=== PATIENT | female | born 1945 | race Caucasian/White ===

== ENCOUNTER → 2024-02-10 14:39 | Outpatient (REF) | payer MEDICARE, SELFPAY | LOC: PAVMRI 14:39 | PROVIDERS: ATTENDING PHYSICIAN Physician Assistant Medical; FAMILY PHYSICIAN Family Medicine | DX: M48.062 Spinal stenosis, lumbar region with neurogenic claudication (principal) | CPT/HCPCS: 72148 ==

== ENCOUNTER 2024-08-01 12:22 | Emergency (ER) | payer MEDICARE, SELFPAY ==
[2024-08-01 12:24] VITALS: BP 141/78
[2024-08-01 12:46] LABS: % Basophils 0.2 % (0-2); % Immature Granulocytes 0.3 % (0-0.5); % Lymphocytes 5.8 % (20.5-51.1); % Monocytes 3.4 % (1.7-9.3); % Neutrophils 90.3 % (42.2-75.2); Absolute Lymphocytes 0.5 10^3/uL (1.2-3.4); Absolute Monocytes 0.3 10^3/uL (0.1-0.6); Absolute Neutrophils 8.5 10^3/uL (1.4-6.5); Hematocrit 34.1 % (37.0-47.0); Hemoglobin 11.5 g/dL (12.0-16.0); Mean Corp Hgb Conc. 33.7 g/dL (33.0-37.0); Mean Corpuscular Hgb 31.3 pg (27.0-31.0); Mean Corpuscular Volume 92.7 fL (81.0-99.0); Mean Platelet Volume 9.7 fL (7.4-10.4); Nucleated Red Blood Cells % 0 %; Platelet Count 288 10^3/uL (130-400); Red Blood Cell Count 3.68 10^6/uL (4.20-5.40); Red Cell Dist. Width 13.6 % (11.5-14.5); White Blood Cell Count 9.4 10^3/uL (4.8-10.8)
[2024-08-01 12:54] LABS: ALT (SGPT) 23 U/L (0-35); AST (SGOT) 28 U/L (14-36); Albumin 4.4 g/dl (3.5-5.0); Alkaline Phosphatase 59 U/L (38-126); Blood Urea Nitrogen 24 mg/dl (7-17); Calcium 9.5 mg/dl (8.4-10.2); Carbon Dioxide 26 mmol/L (22-30); Chloride 101 mmol/L (98-107); Glucose 138 mg/dl (70-99); Potassium 4.4 mmol/L (3.5-5.1); Sodium 140 mmol/L (135-145); Total Bilirubin 0.3 mg/dl (0.2-1.3); Total Protein 6.6 g/dl (6.3-8.2); eGFR > 60.00
[2024-08-01 14:40] VITALS: BP 143/67; BMI 28.3
--- NOTE | 2024-08-01 14:57 | ED.GENMED ---
History of Present Illness
<Ernst Chi MD, Resident - Last Filed: 08/02/24 07:18>
General
Chief Complaint: Rectal Bleeding
Source: patient
Time Seen by Provider: 08/01/24 13:55
History of Present Illness
History of Present Illness:
Patient is a 78-year-old female with past medical history of Crohn's disease, GERD, Barretts, frequent UTIs who presents with crampy lower abdominal pain, starting around 1:30 AM. She states that she felt a large stool pass and after that she had 5
episodes of bright red rectal bleeding. She dined out last night and had salmon and risoto for dinner. pt denies being constipated and has regular bowel movements. Does not have a history of hemorrhoids to the best of her knowledge. Mentions
about 2 weeks ago she had an episode of UTI for which she was prescribed Cipro. She is usually treated with cephalexin for her UTI and this was the first time she was taking Cipro. Mentions that after completing course of antibiotics last week,
she had dark black stools for 3 days. Outpatient labs done on 07/27 showed a hgb of 10.8.
Patient denies any fever. denies recent weight loss. does not complain of significant lightheadedness or dizziness. She has been feeling nauseous since [employer] and has vomited couple of times.
She was admitted to with [facility] in April and is known to Dr. Treviño.
If applicable-neuro sx onset
Onset of symptoms known: Yes
Date of onset of symptoms: 08/01/24
Time of onset of symptoms: 01:30
Past History
<Ernst Chi MD, Resident - Last Filed: 08/02/24 07:18>
Past History
ED Past Medical History: Fibromyalgia, GERD, HTN, Hypercholesterolemia, Hypothyroidism and Other ( Gonzalez's esophagus, small bowel Crohn's disease, iron deficiency anemia, GI bleeding, Pancreatitis,)
ED Past Surgical History: Appendectomy, Orthopedic (Knee arthroscopy, knee replacement), Tonsilectomy and Other (Partial Thyroidectomy)
Social History
Tobacco: Former smoker
Alcohol: Occasional
Drug: None
Personal:
Living: with family
Employment: Retired
Family History
Family History: Other (Noncontributory)
Review of Systems
<Ernst Chi MD, Resident - Last Filed: 08/02/24 07:18>
Review of Systems
Allergies reviewed?: Yes
All Other Systems: ROS reviewed and negative except as documented in HPI and ROS
ABD/GI: Reports abdominal pain, nausea and vomiting
Phy Exam
<Ernst Chi MD, Resident - Last Filed: 08/02/24 07:18>
General Physical Exam
General Presentation: well appearing
Cardiovascular Exam
Cardiovascular Exam: regular rate/rhythm
Pulmonary Exam
Pulmonary Exam: lungs clear and no respiratory distress
Gastrointestinal Exam
Gastrointestinal Exam: normal bowel sounds, non tender (Minimal suprapubic tenderness), soft and non distended
Rectal Exam: other (Positive Hemoccult test, Rectal skin tag)
Neurological Exam
Neurological Exam: alert and oriented x3
Course
<Ernst Chi MD, Resident - Last Filed: 08/02/24 07:18>
Orders/Labs/Results
Orders:
Orders
08/01/24 12:30
Type+Screen Urgent
Complete Blood Count/With Diff Urgent
Comprehensive Metabolic Panel Urgent
08/01/24 14:55
0.9% Sodium Chloride 500 ml [Nss] 500 ml IV Per Protocol mls/hr
Ondansetron Injectable [Zofran] 4 mg IV NOW STA
08/01/24 15:19
CT Abd/pelvis W Iv Cont Urgent
Comment:
Reason For Exam: nausea, vomiting, blood in stool
08/01/24 17:42
ECG [Electrocardiogram (*1)] Urgent
Reason for Study: Palpitations
EKG- Treatment ONCE
08/01/24 17:43
Atenolol [Tenormin] 50 mg PO NOW STA
08/01/24 19:25
Amoxicillin 875 mg/Clav 125 mg [Augmentin 875 mg/125 mg] 1 tablet PO NOW STA
08/01/24 19:49
Urinalysis Reflex To Culture Urgent
Date Specimen was Collected: 08/01/24
Time Specimen was Collected: 15:43
Abnormal Lab Results
08/01/24
12:30
RBC 3.68 L 10^6/uL
(4.20-5.40)
Hgb 11.5 L g/dL
(12.0-16.0)
Hct 34.1 L %
(37.0-47.0)
MCH 31.3 H pg
(27.0-31.0)
Absolute Neuts (auto) 8.5 H 10^3/uL
(1.4-6.5)
Absolute Lymphs (auto) 0.5 L 10^3/uL
(1.2-3.4)
Neutrophils % 90.3 H %
(42.2-75.2)
Lymphocytes % 5.8 L %
(20.5-51.1)
BUN 24 H mg/dl
(7-17)
Glucose 138 H mg/dl
(70-99)
08/01/24 12:30
08/01/24 12:30
Vital Signs
Initial and Last Documented VS:
Initial Vital Signs
Temp Pulse Resp BP Pulse Ox
98.2 F 98 16 141/78 98
08/01/24 12:24 08/01/24 12:24 08/01/24 12:24 08/01/24 12:24 08/01/24 12:24
Last Documented Vital Signs
Temp Pulse Resp BP Pulse Ox
98.4 F 102 18 135/78 99
08/01/24 19:53 08/01/24 19:53 08/01/24 19:53 08/01/24 19:53 08/01/24 19:53
<Anahi DO Catie - Last Filed: 08/01/24 19:33>
Orders/Labs/Results
Orders:
Orders
08/01/24 12:30
Type+Screen Urgent
Complete Blood Count/With Diff Urgent
Comprehensive Metabolic Panel Urgent
08/01/24 14:55
0.9% Sodium Chloride 500 ml [Nss] 500 ml IV Per Protocol mls/hr
Ondansetron Injectable [Zofran] 4 mg IV NOW STA
08/01/24 15:19
CT Abd/pelvis W Iv Cont Urgent
Comment:
Reason For Exam: nausea, vomiting, blood in stool
08/01/24 17:42
ECG [Electrocardiogram (*1)] Urgent
Reason for Study: Palpitations
EKG- Treatment ONCE
08/01/24 17:43
Atenolol [Tenormin] 50 mg PO NOW STA
08/01/24 19:25
Amoxicillin 875 mg/Clav 125 mg [Augmentin 875 mg/125 mg] 1 tablet PO NOW STA
08/01/24 19:49
Urinalysis Reflex To Culture Urgent
Date Specimen was Collected: 08/01/24
Time Specimen was Collected: 15:43
Abnormal Lab Results
08/01/24
12:30
RBC 3.68 L 10^6/uL
(4.20-5.40)
Hgb 11.5 L g/dL
(12.0-16.0)
Hct 34.1 L %
(37.0-47.0)
MCH 31.3 H pg
(27.0-31.0)
Absolute Neuts (auto) 8.5 H 10^3/uL
(1.4-6.5)
Absolute Lymphs (auto) 0.5 L 10^3/uL
(1.2-3.4)
Neutrophils % 90.3 H %
(42.2-75.2)
Lymphocytes % 5.8 L %
(20.5-51.1)
BUN 24 H mg/dl
(7-17)
Glucose 138 H mg/dl
(70-99)
08/01/24 12:30
08/01/24 12:30
Vital Signs
Initial and Last Documented VS:
Initial Vital Signs
Temp Pulse Resp BP Pulse Ox
98.2 F 98 16 141/78 98
08/01/24 12:24 08/01/24 12:24 08/01/24 12:24 08/01/24 12:24 08/01/24 12:24
Last Documented Vital Signs
Temp Pulse Resp BP Pulse Ox
98.4 F 102 18 135/78 99
08/01/24 19:53 08/01/24 19:53 08/01/24 19:53 08/01/24 19:53 08/01/24 19:53
<Ernst Chi MD, Resident - Last Filed: 08/02/24 07:18>
*Critical Care Note
Total Time (30-74mins, 75-104mins- exclusive of procedures): 35
ED Attending Note
<Ernst Chi MD, Resident - Last Filed: 08/02/24 07:18>
-
Portions of this chart may have been created with voice recognition software.� Occasional wrong word or��sound alike� substitutions may have occurred due to the inherent limitations of voice recognition software.
<Anahi Haddad DO - Last Filed: 08/01/24 19:33>
ED Attending Note
Patient seen and examined by attending physician: Yes
I performed the substantive portion of visit, reviewed & personally made and approve the management plan that is documented in note by myself or CATHERINE.: Yes
I performed a history and physical exam of patient and discussed management with resident, I reviewed resident's note and agree with documented findings and plan of care.: Yes
ED Attending Note:
78-year-old female with history of Crohn's disease and Gonzalez's esophagus presenting to the emergency department for crampy abdominal pain and blood per rectum. Patient reports symptoms started around 130 this morning. She went out to dinner last
night and had salmon and risotto. At symptom onset, had a large bowel movement, followed by blood. Stool has been bright red. Also reports some nausea and an episode of vomiting. About 2 weeks ago, patient was treated for UTI, was placed on
ciprofloxacin and about 3 days after finishing the course of antibiotics, had very dark stools and her hemoglobin dropped to 10.3 (10/2). Denies chest pain or difficulty breathing. Reports that her urinary symptoms have improved. Denies fever.
Vital signs are normal. On exam, patient is in no acute distress. Patient afebrile, nontoxic. On abdominal exam, mild tenderness to the lower abdomen. Patient had laboratory analysis obtained prior to my assessment. Patient's hemoglobin has
improved from 10/2 where she noted it was 10.3. It is now in the 11 range. At this time, lower suspicion for significant GI hemorrhage. Suspect possible gastroenteritis, possibly from bacteria causing bloody diarrhea. Rectal exam performed by
resident physician, no significant hemorrhoid or hematochezia. Patient had a bowel movement in the toilet, which she showed me, small amount of bright red blood. Given patient's GI history, will obtain CT abdominal imaging to ensure no process.
Will treat with IV fluids and Zofran.
19:20 -CT is consistent with colitis. Given that patient is having a bloody diarrhea with moderate colitis, will start on antibiotics, Augmentin. Otherwise patient remains hemodynamically stable. Feel that she is stable for discharge with close
interval follow-up with her doctor for repeat CBC testing within a week time. Patient unable to provide stool for stool samples. Strict return precautions were communicated to patient and at bedside who verbalized understanding
Discharge Plan
Departure
Patient Disposition: Home (Routine Discharge)
Date of Disposition: 08/01/24
Time of Disposition: 19:33
Patient with high blood pressure during this ER visit?: No
Condition: Good
Discharge Problem:
Colitis, Bloody diarrhea
Instructions: Bloody Stools, Adult (DC), Colitis (DC)
Prescriptions:
New
amoxicillin-pot clavulanate 875-125 mg tablet
1 tab PO Q12H 10 Days Qty: 20 0RF
ondansetron 4 mg tablet,disintegrating
4 mg PO TIDPRN PRN (Reason: nausea/vomiting) Qty: 10 0RF
No Action
omeprazole 40 MG capsule,delayed release(DR/EC)
40 mg PO DAILY
calcium carbonate [Oyster Shell Calcium 500] 500 MG tablet
500 mg PO DAILY
levothyroxine 125 MCG tablet
125 mcg PO DAILY
atenolol 50 MG tablet
50 mg PO QPM
cholecalciferol (vitamin D3) 1,000 UNITS tablet
1,000 units PO DAILY
losartan 50 mg Tablet
50 mg PO DAILY
ascorbic acid (vitamin C) [Vitamin C] 1,000 mg Tablet
1,000 mg PO DAILY
acetaminophen [Tylenol Extra Strength] 500 mg Tablet
1,000 mg PO Q6HPRN PRN (Reason: mild pain)
amitriptyline 25 mg Tablet
25 mg PO HS
lorazepam 0.5 mg Tablet
0.5 mg PO HS
Patient Comments:
08/01/24: last filled 07/11/24 for 30 tablets over 30 days
cranberry 500 mg Capsule
500 mg PO DAILY
Centrum Silver Women 8 mg iron-400 mcg-50 mcg Tablet
1 tab PO DAILY
Skyrizi 360 mg/2.4 mL (150 mg/mL) Wearable Injector
0 mg SC Q8W
Patient Comments:
08/01/24: Patient is unsure of her current dosage
Referrals:
Nader Salcido DO [Family Provider] -
Activity Restrictions/Additional Instructions:
You were seen in the emergency department for abdominal pain and diarrhea
You were found to have colitis. You were started on Augmentin.
Please follow-up closely with your primary care physician.
Return to the emergency department for any worsening of your symptoms including increased bleeding per rectum, increased pain to the abdomen, or any development of chest pain, difficulty breathing, abdominal pain with persistent vomiting and
inability to tolerate food or liquid by mouth (concern for dehydration), weakness or lightheadedness, headache or confusion, fever greater than 100.4, or any additional symptoms that are concerning to you.
Thank you for choosing [facility] [place].
Interventions
Interventions:
*Risk Screen - Suicide Last Done: 08/01/24 12:24
*Neglect/Abuse Screening Last Done: 08/01/24 12:24
*Nursing Disposition Last Done: 08/01/24 19:53
OT-Fxfaut-Yhiuzajqog Assessment Last Done: 08/01/24 14:40
ED- Cardiac Assessment Last Done: 08/01/24 14:40
ED- Pulmonary Assessment Last Done: 08/01/24 14:40
Discharge Date and Time
Discharge Date/Time: 08/01/24 19:55
Print Language: CHINESE
[2024-08-01] MEDS: ZOFRAN 4 MG IV (15:36)
[2024-08-01] MEDS: NSS 500 IV (15:38)
[2024-08-01] MEDS: TENORMIN 50 MG PO (19:05)
[2024-08-01] MEDS: AUGMENTIN 875 MG/125 MG 1 TABLET PO (19:33)
[2024-08-01 19:53] VITALS: BP 135/78
[2024-08-01 19:56] LABS: Urine Albumin Negative (Neg - Trace); Urine Bilirubin Negative (Negative); Urine Character Clear (Clear); Urine Color Yellow; Urine Glucose Negative (Negative); Urine Ketone Negative (Negative); Urine Leukocyte Negative (Negative); Urine Nitrite Negative (Negative); Urine Occult Blood Negative (Negative); Urine Urobilinogen Negative (Neg - 1+)
== END 2024-08-01 19:55 | disposition home or self-care (01) ==
LOC: EMR 12:22
PROVIDERS: Emergency Medicine; EMERGENCY PHYSICIAN Student in an Organized Health Care Education/Training Program; FAMILY PHYSICIAN Family Medicine
DX: K52.9 Noninfective gastroenteritis and colitis, unspecified (principal); K92.1 Melena; K50.011 Crohn's disease of small intestine with rectal bleeding; K22.70 Barrett's esophagus without dysplasia; M79.7 Fibromyalgia; K21.9 Gastro-esophageal reflux disease without esophagitis; I10 Essential (primary) hypertension; E78.00 Pure hypercholesterolemia, unspecified; E03.9 Hypothyroidism, unspecified; D50.9 Iron deficiency anemia, unspecified; Z87.19 Personal history of other diseases of the digestive system; Z87.440 Personal history of urinary (tract) infections; Z87.891 Personal history of nicotine dependence; Z90.49 Acquired absence of other specified parts of digestive tract; Z96.659 Presence of unspecified artificial knee joint
CPT/HCPCS: 99284; 74177; 80053; 81003; 85025; 86850; 86900; 86901; 93005; Q9967

== ENCOUNTER 2024-08-18 11:32 | Emergency (ER) | payer MEDICARE, SELFPAY ==
[2024-08-18 11:38] VITALS: BP 117/66
[2024-08-18 11:58] LABS: % Basophils 0.2 % (0-2); % Eosinophils 0.3 % (0-6); % Immature Granulocytes 0.3 % (0-0.5); % Lymphocytes 11.2 % (20.5-51.1); % Monocytes 4.9 % (1.7-9.3); % Neutrophils 83.1 % (42.2-75.2); Absolute Lymphocytes 1.1 10^3/uL (1.2-3.4); Absolute Monocytes 0.5 10^3/uL (0.1-0.6); Absolute Neutrophils 7.9 10^3/uL (1.4-6.5); Hematocrit 32.1 % (37.0-47.0); Hemoglobin 10.9 g/dL (12.0-16.0); Mean Corpuscular Hgb 32.2 pg (27.0-31.0); Mean Corpuscular Volume 94.7 fL (81.0-99.0); Mean Platelet Volume 9.8 fL (7.4-10.4); Nucleated Red Blood Cells % 0 %; Platelet Count 278 10^3/uL (130-400); Red Blood Cell Count 3.39 10^6/uL (4.20-5.40); Red Cell Dist. Width 13.5 % (11.5-14.5); White Blood Cell Count 9.5 10^3/uL (4.8-10.8)
[2024-08-18 12:16] LABS: ALT (SGPT) 20 U/L (0-35); AST (SGOT) 24 U/L (14-36); Albumin 4.2 g/dl (3.5-5.0); Alkaline Phosphatase 60 U/L (38-126); Blood Urea Nitrogen 14 mg/dl (7-17); Calcium 9.5 mg/dl (8.4-10.2); Carbon Dioxide 25 mmol/L (22-30); Chloride 103 mmol/L (98-107); Glucose 125 mg/dl (70-99); Lipase 34 U/L (23-300); Potassium 3.9 mmol/L (3.5-5.1); Sodium 140 mmol/L (135-145); Total Bilirubin 0.6 mg/dl (0.2-1.3); Total Protein 6.4 g/dl (6.3-8.2); eGFR > 60.00
[2024-08-18 12:54] VITALS: BP 125/65
[2024-08-18 13:00] VITALS: BP 132/62
--- NOTE | 2024-08-18 13:12 | ED.GENMED ---
History of Present Illness
General
Chief Complaint: Abdominal Symptoms
Source: patient
Exam Limitations: none
Time Seen by Provider: 08/18/24 13:05
History of Present Illness
History of Present Illness:
78-year-old female presents complaining of persistent lower abdominal pain with diarrhea. She was here 08/01 for the same and diagnosed with colitis by CT. She was having bloody diarrhea at that time was placed on Augmentin of which she finished 1
week ago. She presents with persistent symptoms. No fever. Upon my entry into the room she is requesting a kit to give a stool culture as she think she can provide a sample. No other complaints at this time
Past History
Past History
ED Past Medical History: Fibromyalgia, GERD, HTN, Hypercholesterolemia, Hypothyroidism and Other ( Gonzalez's esophagus, small bowel Crohn's disease, iron deficiency anemia, GI bleeding, Pancreatitis,)
ED Past Surgical History: Appendectomy, Orthopedic (Knee arthroscopy, knee replacement), Tonsilectomy and Other (Partial Thyroidectomy)
Social History
Tobacco: Former smoker
Alcohol: Occasional
Drug: None
Personal:
Living: with family
Employment: Retired
Family History
Family History: Other (Noncontributory)
Phy Exam
Physical Exam
Physical Exam:
General: Well appearing female nad
HEENT: nC/AT
Heart: RRR, no murmurs
lungs: CTA bilaterally
ABd: soft, mildly diffusely tender
Ext: no cyanosis
Course
Orders/Labs/Results
Orders:
Orders
08/18/24 11:48
C-Reactive Protein Routine
Comment: ADD ON
Complete Blood Count/With Diff Urgent
Comprehensive Metabolic Panel Urgent
Erythrocyte Sed Rate Urgent
Comment: ADD ON
Lipase Urgent
08/18/24 13:36
STOOL [C difficile Antigen & Toxins] Urgent
FRANKLIN Source: Feces/Stool
Specimen Description:
Date Specimen was Collected: 08/18/24
Time Specimen was Collected: 13:15
Stool Culture Urgent
FRANKLIN Source: Feces/Stool
Specimen Description:
Date Specimen was Collected: 08/18/24
Time Specimen was Collected: 13:15
08/18/24 14:25
0.9% Sodium Chloride 1000 ml [Nss] 1,000 ml IV BOLUS
08/18/24 14:37
Add On- LAB Routine
Tests Added?: CRP, ESR
Abnormal Lab Results
08/18/24
11:48
RBC 3.39 L 10^6/uL
(4.20-5.40)
Hgb 10.9 L g/dL
(12.0-16.0)
Hct 32.1 L %
(37.0-47.0)
MCH 32.2 H pg
(27.0-31.0)
Absolute Neuts (auto) 7.9 H 10^3/uL
(1.4-6.5)
Absolute Lymphs (auto) 1.1 L 10^3/uL
(1.2-3.4)
Neutrophils % 83.1 H %
(42.2-75.2)
Lymphocytes % 11.2 L %
(20.5-51.1)
ESR 26 H mm/hour
(0-20)
Glucose 125 H mg/dl
(70-99)
08/18/24 11:48
08/18/24 11:48
Vital Signs
Initial and Last Documented VS:
Initial Vital Signs
Temp Pulse Resp BP Pulse Ox
98.8 F 101 18 117/66 99
08/18/24 11:38 08/18/24 11:38 08/18/24 11:38 08/18/24 11:38 08/18/24 11:38
Last Documented Vital Signs
Temp Pulse Resp BP Pulse Ox
98.8 F 97 18 132/62 96
08/18/24 11:38 08/18/24 14:00 08/18/24 14:00 08/18/24 13:00 08/18/24 14:00
MDM/Problems Addressed
Differential Diagnosis Includes:
Patient presents with persistent abdominal pain and diarrhea.
Was here for bloody diarrhea on August 01 and finished a course of Augmentin 1 week ago. She notes for the past 3 nights she has had diarrhea with lower abdominal. She does have a history of Crohn's disease and is followed by GI
Labs today show normal white count and stable hemoglobin renal functions are normal. She was hydrated. Stool cultures were ordered
*Critical Care Note
Total Time (30-74mins, 75-104mins- exclusive of procedures): Not Applicable
Update Note
Update Note:
C. difficile study negative today stool cultures pending patient hydrated. She was seen by GI in the emergency room. Given negative CT differential, will treat with prednisone for potential Crohn's flare. Prescription was provided and she will
follow-up with the GI team but stable for dicsharge.
ED Attending Note
-
Portions of this chart may have been created with voice recognition software.� Occasional wrong word or��sound alike� substitutions may have occurred due to the inherent limitations of voice recognition software.
Discharge Plan
Departure
Patient Disposition: Home (Routine Discharge)
Date of Disposition: 08/18/24
Time of Disposition: 15:41
Patient with high blood pressure during this ER visit?: No
Discharge Problem:
Diarrhea
Instructions: Diarrhea in teens and adults
Prescriptions:
New
prednisone 10 mg tablet
10 mg PO DIRECTED Qty: 50 0RF
Rx Instructions:
Take 40 mg for 5 days then 30 mg for 5 days then 20 mg for 5 days then 10 mg for 5 days.
No Action
omeprazole 40 MG capsule,delayed release(DR/EC)
40 mg PO DAILY
calcium carbonate [Oyster Shell Calcium 500] 500 MG tablet
500 mg PO DAILY
levothyroxine 125 MCG tablet
125 mcg PO DAILY
atenolol 50 MG tablet
50 mg PO QPM
cholecalciferol (vitamin D3) 1,000 UNITS tablet
1,000 units PO DAILY
losartan 50 mg Tablet
50 mg PO DAILY
ascorbic acid (vitamin C) [Vitamin C] 1,000 mg Tablet
1,000 mg PO DAILY
acetaminophen [Tylenol Extra Strength] 500 mg Tablet
1,000 mg PO Q6HPRN PRN (Reason: mild pain)
amitriptyline 25 mg Tablet
25 mg PO HS
lorazepam 0.5 mg Tablet
0.5 mg PO HS
Patient Comments:
08/01/24: last filled 07/11/24 for 30 tablets over 30 days
cranberry 500 mg Capsule
500 mg PO DAILY
Centrum Silver Women 8 mg iron-400 mcg-50 mcg Tablet
1 tab PO DAILY
Skyrizi 360 mg/2.4 mL (150 mg/mL) Wearable Injector
0 mg SC Q8W
Patient Comments:
08/01/24: Patient is unsure of her current dosage
amoxicillin-pot clavulanate 875-125 mg tablet
1 tab PO Q12H 10 Days Qty: 20 0RF
ondansetron 4 mg tablet,disintegrating
4 mg PO TIDPRN PRN (Reason: nausea/vomiting) Qty: 10 0RF
Referrals:
Nader Salcido DO [Family Provider] -
Activity Restrictions/Additional Instructions:
Drink plenty of fluids. Use steroid as directed by GI. A prescription for this was sent to the pharmacy. You should receive a call if your stool cultures are positive
Interventions
Interventions:
*Risk Screen - Suicide Last Done: 08/18/24 11:38
*General Assessment Last Done: 08/18/24 11:38
*Neglect/Abuse Screening Last Done: 08/18/24 11:38
ED- Fall Risk Assessment Last Done: 08/18/24 13:14
*ED COVID-19 Vaccine History Last Done: 08/18/24 11:38
IQ-Cyszwt-Oegagwhwiu Assessment Last Done: 08/18/24 12:44
Discharge Date and Time
Print Language: URDU
[2024-08-18 13:13] VITALS: BMI 28.8
--- NOTE | 2024-08-18 13:23 | CON.GI ---
Addendum entered and electronically signed by Yemi Goodson MD 08/18/24 15:12:
I saw and examined the patient.
The REPLENISHMENT BUYER or PA's note was reviewed and I agree with the note.
Comment: 78yo female with hx SB Crohn's recently seen in ER for L sided colitis treated with Augmentin sent to ER due to abd pain and diarrhea this week. At time of ER visit 08/01 she had bloody diarrhea. This resolved after d/c on abx. She ate
burger at [facility] earlier this week and next day had diarrhea and cramping. She has been on Skyrizi for SB Crohn's. MR enterography last year showed a few short skip lesions in SB, mild improvement from prior, and chronic inflammatory stricture
descending colon. Last colonoscopy 2021 normal with normal path. She took Skyrizi on Thursday this week
REC:
Await stool C diff. If positive, rx dificid x 10 days
If negative, would give steroid taper with prednisone 40mg and taper 10mg every 5 days
If she remains fairly comfortable, should be OK for d/c
Original Note:
Consultation
-
Date/Time Consultation Requested: 08/18/241314
Date/Time Consultation Performed: 08/18/245
Requesting Provider: Kvng Donald PA-C
Performing Provider: EFRAÍN Esparza, Yemi Goodson MD
Reason for Consultation: left sided colitis
Medical History
Chief Complaint / HPI
Chief Complaint: abdominal pain and diarrhea
History of Present Illness:
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
cholesterol, hypothyroid, Vitamin D deficiency, appe, iron deficiency anemia(follows with heme with iron infusion this week), pancreatitis presents with abdominal pain and diarrhea. she was in ER 08/01 with abdominal pain, diarrhea and rectal
bleeding. She was and was noted with mild anemia hbg 11.[address] notable for acute colitis with moderate left and severe lower density wall thickening from splenic flexure. She was treated with course of Augmentin with improvement. On 08/14 pt
went to [facility] and ate [place] then noted with diarrhea since 08/15 with increased stool frequency with loose non bloody stools. On admission WBC was normal with stable labs.
At this time she admits to abdominal soreness but denies odynophagia, dysphagia, nausea, vomiting, current bllod or black in stools. Last colonoscopy 2021 with normal mucosa with no evidence of IBD but MRE 2022 with
Crohn's disease with a few short segment skip lesions in the small bowel with mild improvement compared to the exam from 03/05/2022. Similar appearance of a long segment chronic inflammatory stricture of the descending colon.
Past Medical History
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
Past Surgical History: Other (Appendectomy, knee replacement, tonsillectomy, partial thyroidectomy)
Social History
Tobacco: Former Smoker
Alcohol: None
Drug: None
Personal:
Living: With Family
Family History
Family History: Other (no family hx crohns, UC or colon CA)
Allergies / Home Medications
Allergy/AdvReac Type Severity Reaction Status Date / Time
azathioprine Allergy pancreatiti Verified 08/01/24 12:25
s
budesonide Allergy 'passed Verified 08/01/24 12:25
out'
sulfamethoxazole Allergy Rash Verified 08/01/24 12:25
[From Bactrim]
trimethoprim [From Bactrim] Allergy Rash Verified 08/01/24 12:25
�Medication �Instructions �Recorded
atenolol 50 mg tablet 50 mg PO QPM Blood pressure 02/22/20
calcium carbonate (Oyster Shell 500 mg PO DAILY osteoporosis 02/22/20
Calcium 500)
cholecalciferol (vitamin D3) 25 1,000 units PO DAILY Supplement 02/22/20
mcg (1,000 unit) tablet
levothyroxine 125 mcg tablet 125 mcg PO DAILY Thyroid 02/22/20
omeprazole 40 mg capsule,delayed 40 mg PO DAILY Gastrointestinal 02/22/20
release issue
acetaminophen 500 mg tablet 1,000 mg PO Q6HPRN PRN mild pain 08/01/24
(Tylenol Extra Strength)
amitriptyline 25 mg tablet 25 mg PO HS 08/01/24
amoxicillin 875 mg-potassium 1 tab PO Q12H 10 days #20 tabs 08/01/24
clavulanate 125 mg tablet
ascorbic acid (vitamin C) 1,000 mg 1,000 mg PO DAILY 08/01/24
tablet (Vitamin C)
cranberry 500 mg capsule 500 mg PO DAILY 08/01/24
lorazepam 0.5 mg tablet 0.5 mg PO HS 08/01/24
losartan 50 mg tablet 50 mg PO DAILY 08/01/24
isxpuwtq-wczr-uahp 8 mg-folic 400 1 tab PO DAILY 08/01/24
mcg-K 50 mcg-lutein 300 mcg tablet
(Centrum Silver Women)
ondansetron 4 mg disintegrating 4 mg PO TIDPRN PRN nausea/vomiting 08/01/24
tablet #10 tabs
risankizumab-rzaa 360 mg/2.4 mL 0 mg SC Q8W 08/01/24
(150 mg/mL) subcut wearable
injector (Skyrizi)
Review of Systems
-
History Source: Patient
Constitutional: Reports No Symptoms
EENT: Reports No Symptoms
Cardiac: Reports No Symptoms
Abdomen/GI: Reports Abdominal Pain, Diarrhea and Bloody Stools (recent bloody stool 08/01 no improved )
: Reports No Symptoms
Musculoskeletal: Reports No Symptoms
Skin: Reports No Symptoms
Neurological: Reports Weakness
Endocrine: Reports No Symptoms
Hematologic/Lymphatic: Reports No Symptoms
Vital Signs
Temp Pulse Resp BP Pulse Ox
98.8 F 95 17 132/62 98
08/18/24 11:38 08/18/24 13:00 08/18/24 13:00 08/18/24 13:00 08/18/24 13:00
Physical Exam
Exam
General: Well Developed, Well Nourished and No Apparent Distress
HEENT: Normocephalic and Anicteric
Respiratory: Clear
Cardiac: Regular Rhythm
GI: Soft, Non Distended and Tender (mild right sided pain)
Musculoskeletal: No Clubbing and No Cyanosis
Skin: Warm and Dry
Neuro: Awake, Alert and AO x 3
Psych: Calm
Results
WBC 9.5 10^3/uL (4.8-10.8) 08/18/24 11:48
Hgb 10.9 g/dL (12.0-16.0) L 08/18/24 11:48
Hct 32.1 % (37.0-47.0) L 08/18/24 11:48
MCV 94.7 fL (81.0-99.0) 08/18/24 11:48
Plt Count 278 10^3/uL (130-400) 08/18/24 11:48
Absolute Neuts (auto) 7.9 10^3/uL (1.4-6.5) H 08/18/24 11:48
Sodium 140 mmol/L (135-145) 08/18/24 11:48
Potassium 3.9 mmol/L (3.5-5.1) 08/18/24 11:48
Chloride 103 mmol/L (98-107) 08/18/24 11:48
Carbon Dioxide 25 mmol/L (22-30) 08/18/24 11:48
BUN 14 mg/dl (7-17) 08/18/24 11:48
Creatinine 0.7 mg/dL (0.6-1.0) 08/18/24 11:48
Calcium 9.5 mg/dl (8.4-10.2) 08/18/24 11:48
Total Bilirubin 0.6 mg/dl (0.2-1.3) 08/18/24 11:48
AST 24 U/L (14-36) 08/18/24 11:48
ALT 20 U/L (0-35) 08/18/24 11:48
Alkaline Phosphatase 60 U/L (38-126) 08/18/24 11:48
Lipase 34 U/L (23-300) 08/18/24 11:48
Diagnostic Image Results:
08/01/24 CT Abd/pelvis W Iv Cont
1). Acute colitis with moderate left and severe low density bowel wall thickening from the splenic flexure to the proximal sigmoid colon
2). Nonurgent findings include:
-3 cm hiatal hernia
-2.2 cm hepatic hemangioma
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
-Small left-sided renal cysts
-Diverticuli are present in the colon
-Calcified uterine fibroids
-Multilevel lumbar degenerative disc disease
08/2023 MRE-
MRI enterography findings compatible with Crohn's disease with a few short segment skip lesions in the small bowel with mild improvement compared to the exam from 03/05/2022. Similar appearance of a long segment chronic inflammatory stricture of the
descending colon.
Prior GI Procedures:
EGD: 06/11/2022- Normal esophagus.
- Z-line regular, 30 cm from the incisors. No evidence
of Merrill's esophagitis.
- 3 cm hiatal hernia.
- Minimal antral gastritis. Biopsied for Helicobacter
pylori testing. .
- A few benign appearing gastric polyps. Biopsied.
- Normal examined duodenum. Biopsied for evaluation of
celiac disease. .
- Non-bleeding duodenal diverticulum.
bx neg H pylori, normal morphology neg celiac, fundic gland polyp
Colonoscopy: 05/2022 - Normal mucosa in the entire examined colon.
- Multiple biopsies were obtained in the entire colon
for evaluation of inflammatory bowel disease/Crohn's
disease.
bx neg IBD
Assessment / Plan
-
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
cholesterol, hypothyroid, Vitamin D deficiency, appe, iron deficiency anemia(follows with heme with iron infusion this week), pancreatitis presents with abdominal pain and diarrhea. she was in ER 08/01 with abdominal pain, diarrhea and rectal
bleeding. She was and was noted with mild anemia hbg 11.[address] notable for acute colitis with moderate left and severe lower density wall thickening from splenic flexure. She was treated with course of Augmentin with improvement. On 08/14 pt
went to [facility] then noted with diarrhea since 08/15 with increased stool frequency with loose non bloody stools. On admission WBC was normal with stable labs. Last colonoscopy 2021 with normal mucosa with no evidence of IBD but
MRE 2022 with Crohn's disease with a few short segment skip lesions in the small bowel with mild improvement compared to the exam from 03/05/2022. Similar appearance of a long segment chronic inflammatory stricture of the descending colon.
-abdominal pain with diarrhea
-recent left sided colitis with Augmentin course
-hx SB crohns on Skyrizi
-last MRE with reported long segment chronic inflammatory stricture descending colon not seen on prior colonoscopy
other med problems:
-GERD on chronic PPI
-possble merrill's
-fibromyalgia
-hypercholesterolemia
-vitamin D deficiency
--chronic anemia with recent iron infusion
-frequent UTI with abx use
PLAN:
etiology of abdominal pain and diarrhea related to infectious etiology r/o c-diff with recent abx , hx IBD, PPI use vs Ecoli with recent eating out at [place] vs IBD flare vs other
await stool studies results
reviewed with ER for IVF hydration with increased diarrhea
if diarrhea improved while in ER consider admission vs discharge after hydration
add CRP and ESR
if infectious work up negative may need to consider steroid course
pt is scheduled MRE in August and repeat EGD/colon in September with Dr. Treviño
s/p IV completed this week
last Rosanna 08/16
-
-
Thank you for consultation and allowing me to participate in the patient's care. Please call the field agronomist GI physician during the after hours with any questions or concerns.
[2024-08-18 14:43] VITALS: BP 127/67
[2024-08-18] MEDS: NSS 1000 IV (14:43)
[2024-08-18 15:00] VITALS: BP 129/65
[2024-08-18 15:20] LABS: Erythrocyte Sed Rate 26 mm/hour (0-20)
== END 2024-08-18 16:10 | disposition home or self-care (01) ==
LOC: EMR 11:32
PROVIDERS: Emergency Medicine; EMERGENCY PHYSICIAN Emergency Medicine; FAMILY PHYSICIAN Family Medicine
DX: R19.7 Diarrhea, unspecified (principal); R10.30 Lower abdominal pain, unspecified; M79.7 Fibromyalgia; K22.70 Barrett's esophagus without dysplasia; I10 Essential (primary) hypertension; E78.00 Pure hypercholesterolemia, unspecified; E03.9 Hypothyroidism, unspecified; D50.9 Iron deficiency anemia, unspecified; E55.9 Vitamin D deficiency, unspecified; K50.911 Crohn's disease, unspecified, with rectal bleeding; Z82.62 Family history of osteoporosis; Z83.49 Family history of other endocrine, nutritional and metabolic diseases; Z87.19 Personal history of other diseases of the digestive system; Z87.440 Personal history of urinary (tract) infections; Z87.891 Personal history of nicotine dependence; Z90.49 Acquired absence of other specified parts of digestive tract; Z90.89 Acquired absence of other organs; Z96.659 Presence of unspecified artificial knee joint
CPT/HCPCS: 99283; 96360; 80053; 83690; 85025; 85652; 86140; 87045; 87046; 87324; 87427; 87449

== ENCOUNTER → 2024-08-24 11:13 | Outpatient (REF) | payer MEDICARE, SELFPAY | LOC: MRI 3T 11:13 | PROVIDERS: ATTENDING PHYSICIAN Internal Medicine; FAMILY PHYSICIAN Family Medicine | DX: K50.018 Crohn's disease of small intestine with other complication (principal) | CPT/HCPCS: 72197; 74183; A9575 ==

== ENCOUNTER → 2024-10-06 06:21 | Day surgery (SDC) | payer MEDICARE, SELFPAY | LOC: GI 06:21 | PROVIDERS: ATTENDING PHYSICIAN Internal Medicine; FAMILY PHYSICIAN Family Medicine | DX: Z12.11 Encounter for screening for malignant neoplasm of colon (principal); K50.80 Crohn's disease of both small and large intestine without complications; K64.4 Residual hemorrhoidal skin tags; D12.2 Benign neoplasm of ascending colon; D12.0 Benign neoplasm of cecum; D12.3 Benign neoplasm of transverse colon; R12 Heartburn; D50.9 Iron deficiency anemia, unspecified; K44.9 Diaphragmatic hernia without obstruction or gangrene; Q39.9 Congenital malformation of esophagus, unspecified; K31.89 Other diseases of stomach and duodenum; K57.50 Diverticulosis of both small and large intestine without perforation or abscess without bleeding | CPT/HCPCS: 45385; 45380; 43239; 88305; 88342 ==

== ENCOUNTER 2024-10-21 15:04 | Emergency (ER) | payer MEDICARE, SELFPAY ==
[2024-10-21 15:07] VITALS: BP 129/74
[2024-10-21 15:27] LABS: % Basophils 0.3 % (0-2); % Eosinophils 0.4 % (0-6); % Immature Granulocytes 0.1 % (0-0.5); % Lymphocytes 20.2 % (20.5-51.1); % Monocytes 7.7 % (1.7-9.3); % Neutrophils 71.3 % (42.2-75.2); Absolute Lymphocytes 1.9 10^3/uL (1.2-3.4); Absolute Monocytes 0.7 10^3/uL (0.1-0.6); Absolute Neutrophils 6.6 10^3/uL (1.4-6.5); Hematocrit 40.5 % (37.0-47.0); Hemoglobin 13.7 g/dL (12.0-16.0); Mean Corp Hgb Conc. 33.8 g/dL (33.0-37.0); Mean Corpuscular Hgb 30.9 pg (27.0-31.0); Mean Corpuscular Volume 91.4 fL (81.0-99.0); Mean Platelet Volume 9.9 fL (7.4-10.4); Nucleated Red Blood Cells % 0 %; Platelet Count 268 10^3/uL (130-400); Red Blood Cell Count 4.43 10^6/uL (4.20-5.40); Red Cell Dist. Width 13.4 % (11.5-14.5); White Blood Cell Count 9.3 10^3/uL (4.8-10.8)
[2024-10-21 15:48] LABS: ALT (SGPT) 24 U/L (0-35); AST (SGOT) 29 U/L (14-36); Albumin 4.5 g/dl (3.5-5.0); Alkaline Phosphatase 60 U/L (38-126); Blood Urea Nitrogen 21 mg/dl (7-17); Calcium 9.9 mg/dl (8.4-10.2); Carbon Dioxide 29 mmol/L (22-30); Chloride 99 mmol/L (98-107); Glucose 130 mg/dl (70-99); Lipase 80 U/L (23-300); Potassium 4.8 mmol/L (3.5-5.1); Sodium 134 mmol/L (135-145); Total Bilirubin 0.4 mg/dl (0.2-1.3); Total Protein 6.8 g/dl (6.3-8.2); eGFR > 60.00
--- NOTE | 2024-10-21 18:44 | ED.GENMED ---
Addendum entered and electronically signed by EFRAÍN Santos 10/25/24 15:11:
Urine positive for Klebsiella. I saw the patient at home she denies any fever chills we will send Keflex 500 mg twice a patient's pharmacy. Discussed close outpatient follow-up PCP.
Original Note:
History of Present Illness
General
Chief Complaint: Abdominal Symptoms
Source: patient
Exam Limitations: none
Time Seen by Provider: 10/21/24 18:22
History of Present Illness
History of Present Illness:
This is a 79 year old female that comes in with c/o upper abd pain. States that since yesterday she has had this upper abd pain. States that she only eat breakfast yesterday and not eaten since. State that she vomited last night and didn't sleep
last night due to the pain. States that the pain comes and goes and there is a soreness. States that she just feels weak. State that she also had an iron infusion today. States that she is nauseated and has a headache. Denies any fever, chills,
chest pain, SOB, vomiting, diarrhea, dizziness, urinary burning.
Past History
Past History
ED Past Medical History: Cancer (Skin Cancer basal cell), Fibromyalgia, GERD, HTN, Hypercholesterolemia, Hypothyroidism, Psychiatric (Depression) and Other ( Gonzalez's esophagus, small bowel Crohn's disease, iron deficiency anemia, GI bleeding,
Pancreatitis, Dizziness, UTI,)
ED Past Surgical History: Appendectomy, Gynecological (D&C), Orthopedic (Knee arthroscopy, right knee replacement), Tonsilectomy and Other (Partial Thyroidectomy, catracts, )
Social History
Tobacco: Former smoker
Alcohol: None
Drug: None
Personal:
Living: with family
Employment: Retired
Family History
Family History: Other (Noncontributory)
Review of Systems
Review of Systems
All Other Systems: ROS reviewed and negative except as documented in HPI and ROS
Constitutional: Reports no symptoms; Denies fever or chills
EENT: Reports no symptoms
Respiratory: Reports no symptoms; Denies cough or trouble breathing
Cardiac: Reports no symptoms; Denies chest pain
ABD/GI: Reports abdominal pain and nausea; Denies vomiting or diarrhea
: Reports no symptoms; Denies dysuria, frequency or urgency
Musculoskeletal: Reports no symptoms
Skin: Reports no symptoms
Neurological: Reports headache; Denies dizzy
Psychiatric: Reports no symptoms
Phy Exam
General Physical Exam
General Presentation: no apparent distress
General age: appears stated age
General Skin: warm and dry
General Habitus: elderly
General Mental: alert
General Hydration: appears well hydrated
ENT Exam
ENT Exam: TM's normal, pharynx normal and neck supple
Eye Exam
Eye Exam: EOMI
Cardiovascular Exam
Cardiovascular Exam: regular rate/rhythm, no edema and normal peripheral pulses
Pulmonary Exam
Pulmonary Exam: lungs clear, no respiratory distress, no rales, chest non tender, no crackles, no rhonchi, no wheezing and no cough
Gastrointestinal Exam
Gastrointestinal Exam: normal bowel sounds, soft, no organomegaly, no pulsatile mass, non distended and tender (Upper abd soreness)
Musculoskeletal Exam
Musculoskeletal Exam: full ROM and no edema
Skin Exam
Skin Exam: normal color, warm/dry, no rash and no petechia
Psychiatric Exam
Psychiatric Exam: normal mood/affect
Course
Orders/Labs/Results
Orders:
Orders
10/21/24 15:15
Complete Blood Count/With Diff Urgent
Comprehensive Metabolic Panel Urgent
Lipase Urgent
10/21/24 18:43
Pantoprazole [Protonix IV] 40 mg IV NOW STA
Sucralfate Suspension [Carafate Suspension] 1 gm PO NOW STA
US Abdomen Complete/Upper Urgent
Comment:
Reason For Exam: Upper abd discomfort
10/21/24 18:46
0.9% Sodium Chloride 500 ml [Nss] 500 ml IV BOLUS
Ondansetron Injectable [Zofran] 4 mg IV NOW STA
10/21/24 20:13
Urinalysis Reflex To Culture Urgent
Date Specimen was Collected: 10/21/24
Time Specimen was Collected: 19:33
Urine Microscopic Reflex Cult Urgent
Urine Culture Urgent
FRANKLIN Source: U
Specimen Description:
Date Specimen was Collected: 10/21/24
Time Specimen was Collected: 19:33
Abnormal Lab Results
10/21/24 10/21/24
15:15 20:13
Absolute Neuts (auto) 6.6 H 10^3/uL
(1.4-6.5)
Absolute Monos (auto) 0.7 H 10^3/uL
(0.1-0.6)
Lymphocytes % 20.2 L %
(20.5-51.1)
Sodium 134 L mmol/L
(135-145)
BUN 21 H mg/dl
(7-17)
Glucose 130 H mg/dl
(70-99)
Urine Ketones 1+ A
(Negative)
Ur Occult Blood Reflex 2+ A
(Negative)
Leukocyte Esterase Rfl Trace A
(Negative)
Urine RBC 3-6 A /HPF
(0-2)
Urine Bacteria (Reflex) Many A
(Negative)
10/21/24 15:15
10/21/24 15:15
Slight Dehydration. Hyperglycemia, Lipase normal at 80
Vital Signs
Initial and Last Documented VS:
Initial Vital Signs
Temp Pulse Resp BP Pulse Ox
98.3 F 81 18 129/74 95
10/21/24 15:07 10/21/24 15:07 10/21/24 15:07 10/21/24 15:07 10/21/24 15:07
Last Documented Vital Signs
Temp Pulse Resp BP Pulse Ox
98.3 F 81 18 129/74 95
10/21/24 15:07 10/21/24 15:07 10/21/24 15:07 10/21/24 15:07 10/21/24 15:07
MDM/Problems Addressed
Differential Diagnosis Includes:
Gastritis, Pancreatitis,
MDM/Problems Addressed:
This is a 79 year old female that comes in with c/o upper abd discomfort. States that this started yesterday and she vomited last night. States that she was unable to sleep and has not eaten today.
Will check labs, get US and medicate with Protonix, Carafate and Zofran. Will also give a little IV fluids as patient has not been drinking fluids.
Back into see patient. Patient states that she is feeling better. Explained that this is most likely a gastritis. WIll place patient on Protonix and Carafate. Patient has an appointment with the GI specialist in October she believed the .
Patient to return with any conern.
Chronic conditions affecting care:
NA
Acute Exacerbation and/or Progression of Chronic Illness:
NA
*Radiology
Radiology exam reviewed: radiology read reviewed (CT-No sonographic evidence of acute cholecystitis, cholelithiasis or biliary ductal dilation. 2.1cm lesion within the left hepatic lobe consistent with known hemangioma. )
*Pulse Oximetry
Patient hypoxic: no
*EKG
Interpreted by ED Provider?: NA
Rate: EKG- N/A
*Director Product Development Interpretation
Rate: Director Product Development- N/A
*Critical Care Note
Total Time (30-74mins, 75-104mins- exclusive of procedures): Not Applicable
ED Attending Note
-
Portions of this chart may have been created with voice recognition software.� Occasional wrong word or��sound alike� substitutions may have occurred due to the inherent limitations of voice recognition software.
Discharge Plan
Departure
Patient Disposition: Home (Routine Discharge)
Date of Disposition: 10/21/24
Time of Disposition: 21:06
Patient with high blood pressure during this ER visit?: No
Condition: Good
Covid-19: Not Applicable
Discharge Problem:
Gastritis
Instructions: [place] diet, Gastritis - Discharge instructions
Prescriptions:
New
sucralfate [Carafate] 1 gram tablet
1 g PO ACHS Qty: 40 0RF
Rx Instructions:
Dissolve 2tsp water and drink. 30min-1hour before meals and HS
pantoprazole [Protonix] 40 mg tablet,delayed release (DR/EC)
40 mg PO DAILY Qty: 30 0RF
No Action
omeprazole 40 MG capsule,delayed release(DR/EC)
40 mg PO DAILY
calcium carbonate [Oyster Shell Calcium 500] 500 MG tablet
500 mg PO DAILY
levothyroxine 125 MCG tablet
125 mcg PO DAILY
atenolol 50 MG tablet
50 mg PO QPM
cholecalciferol (vitamin D3) 1,000 UNITS tablet
1,000 units PO DAILY
losartan 50 mg Tablet
50 mg PO DAILY
ascorbic acid (vitamin C) [Vitamin C] 1,000 mg Tablet
1,000 mg PO DAILY
acetaminophen [Tylenol Extra Strength] 500 mg Tablet
1,000 mg PO Q6HPRN PRN (Reason: mild pain)
amitriptyline 25 mg Tablet
25 mg PO HS
lorazepam 0.5 mg Tablet
0.5 mg PO HS
Patient Comments:
08/01/24: last filled 07/11/24 for 30 tablets over 30 days
cranberry 500 mg Capsule
500 mg PO DAILY
Centrum Silver Women 8 mg iron-400 mcg-50 mcg Tablet
1 tab PO DAILY
Skyrizi 360 mg/2.4 mL (150 mg/mL) Wearable Injector
0 mg SC Q8W
Patient Comments:
08/01/24: Patient is unsure of her current dosage
amoxicillin-pot clavulanate 875-125 mg tablet
1 tab PO Q12H 10 Days Qty: 20 0RF
ondansetron 4 mg tablet,disintegrating
4 mg PO TIDPRN PRN (Reason: nausea/vomiting) Qty: 10 0RF
prednisone 10 mg tablet
10 mg PO DIRECTED Qty: 50 0RF
Rx Instructions:
Take 40 mg for 5 days then 30 mg for 5 days then 20 mg for 5 days then 10 mg for 5 days.
Referrals:
Nader Salcido DO [Family Provider] - Call in 1-3 days for appt
Activity Restrictions/Additional Instructions:
As discussed, your blood work shows that you are slightly dehydrated. Your urine is negative for infection. However, a urine culture is pending. IF this would come back positive you will be called and started on an antibiotics. Please increase your
water intake to 8-8oz glasses daily. You have had 2 prescriptions sent to your pharmacy. The first is Protonix that you will use in place of the Omeprazole. The second is Carafate that you will take 30min to 1 hour before each meal and again at
bedtime. Please dissolve in 2 tsp of water and drink. Follow up with the family doctor and your GI specialist for further evaluation. IF YOU HAVE INCREASED OR CHANGING PAIN, OR YOU HAVE ANY OTHER CONCERNS PLEASE RETURN TO THE EMERGENCY ROOM
Interventions
Interventions:
*Risk Screen - Suicide Last Done: 10/21/24 15:07
*General Assessment Last Done: 10/21/24 15:07
*Neglect/Abuse Screening Last Done: 10/21/24 15:07
RB-Jtwdjz-Ivreukxtkh Assessment Last Done: 10/21/24 19:05
Discharge Date and Time
Print Language: JAPANESE
[2024-10-21] MEDS: PROTONIX IV 40 MG IV (19:21)
[2024-10-21] MEDS: CARAFATE SUSPENSION 1 GM PO (19:21)
[2024-10-21] MEDS: NSS 500 IV (19:22)
[2024-10-21 20:22] LABS: Urine Albumin Negative (Neg - Trace); Urine Bilirubin Negative (Negative); Urine Character Very Cloudy (Clear); Urine Color Yellow; Urine Glucose Negative (Negative); Urine Ketone 1+ (Negative); Urine Leukocyte Trace (Negative); Urine Nitrite Negative (Negative); Urine Occult Blood 2+ (Negative); Urine Urobilinogen Negative (Neg - 1+)
[2024-10-21 20:42] LABS: Urine Amorphous Seen; Urine Bacteria Many (Negative)
[2024-10-21 21:21] VITALS: BP 116/71
== END 2024-10-21 21:22 | disposition home or self-care (01) ==
LOC: EMR 15:04
PROVIDERS: Clinical Nurse Specialist Family Health; Emergency Medicine; EMERGENCY PHYSICIAN Emergency Medicine; FAMILY PHYSICIAN Family Medicine
DX: K29.70 Gastritis, unspecified, without bleeding (principal); E86.0 Dehydration; Z87.891 Personal history of nicotine dependence
CPT/HCPCS: 99284; 96374; 96361; 76700; 80053; 81003; 81015; 83690; 85025; 87077; 87086; 87186

== ENCOUNTER → 2024-10-21 16:37 | Outpatient (REF) | payer MEDICARE, SELFPAY ==
[2024-10-21 11:45] LABS: % Basophils 0.3 % (0-2); % Eosinophils 0.4 % (0-6); % Immature Granulocytes 0.1 % (0-0.5); % Lymphocytes 18.1 % (20.5-51.1); % Monocytes 5.2 % (1.7-9.3); % Neutrophils 75.9 % (42.2-75.2); Absolute Lymphocytes 1.8 10^3/uL (1.2-3.4); Absolute Monocytes 0.5 10^3/uL (0.1-0.6); Absolute Neutrophils 7.4 10^3/uL (1.4-6.5); Hematocrit 42.2 % (37.0-47.0); Mean Corp Hgb Conc. 33.2 g/dL (33.0-37.0); Mean Corpuscular Hgb 30.4 pg (27.0-31.0); Mean Corpuscular Volume 91.5 fL (81.0-99.0); Mean Platelet Volume 9.8 fL (7.4-10.4); Platelet Count 299 10^3/uL (130-400); Red Blood Cell Count 4.61 10^6/uL (4.20-5.40); Red Cell Dist. Width 13.3 % (11.5-14.5); White Blood Cell Count 9.7 10^3/uL (4.8-10.8)
[2024-10-21 12:57] LABS: Iron 66 ug/dl (37-170)
[2024-10-21 13:06] LABS: Percent Saturation 19 % (20-50); Total Iron Binding Capacity 331 ug/dl (265-497)
[2024-10-21 13:34] LABS: Ferritin 82.3 ng/ml (11.1-264.0)
== END ==
LOC: OIDL 16:37
PROVIDERS: ATTENDING PHYSICIAN Nurse Practitioner Primary Care
DX: E83.19 Other disorders of iron metabolism (principal)
CPT/HCPCS: 82728; 83540; 83550; 85025

== ENCOUNTER → 2024-10-28 14:40 | Outpatient (REF) | payer MEDICARE, SELFPAY ==
[2024-10-28 14:51] LABS: % Basophils 0.8 % (0-2); % Eosinophils 2.3 % (0-6); % Lymphocytes 28.9 % (20.5-51.1); % Monocytes 7.3 % (1.7-9.3); % Neutrophils 60.7 % (42.2-75.2); Absolute Basophils 0.1 10^3/uL (0-0.2); Absolute Eosinophils 0.2 10^3/uL (0-0.7); Absolute Lymphocytes 1.9 10^3/uL (1.2-3.4); Absolute Monocytes 0.5 10^3/uL (0.1-0.6); Absolute Neutrophils 3.9 10^3/uL (1.4-6.5); Hematocrit 37.5 % (37.0-47.0); Hemoglobin 12.7 g/dL (12.0-16.0); Mean Corp Hgb Conc. 33.9 g/dL (33.0-37.0); Mean Corpuscular Volume 91.5 fL (81.0-99.0); Mean Platelet Volume 10.7 fL (7.4-10.4); Platelet Count 258 10^3/uL (130-400); Red Cell Dist. Width 13.1 % (11.5-14.5); White Blood Cell Count 6.5 10^3/uL (4.8-10.8)
== END ==
LOC: OIDL 14:40
PROVIDERS: ATTENDING PHYSICIAN Nurse Practitioner Primary Care
DX: E83.19 Other disorders of iron metabolism (principal)
CPT/HCPCS: 85025

== ENCOUNTER → 2024-11-04 15:47 | Outpatient (REF) | payer MEDICARE, SELFPAY ==
[2024-11-04 14:45] LABS: % Basophils 0.8 % (0-2); % Eosinophils 3.1 % (0-6); % Lymphocytes 38.7 % (20.5-51.1); % Monocytes 12.6 % (1.7-9.3); % Neutrophils 44.8 % (42.2-75.2); Absolute Eosinophils 0.1 10^3/uL (0-0.7); Absolute Lymphocytes 1.5 10^3/uL (1.2-3.4); Absolute Monocytes 0.5 10^3/uL (0.1-0.6); Absolute Neutrophils 1.7 10^3/uL (1.4-6.5); Hematocrit 37.1 % (37.0-47.0); Hemoglobin 12.5 g/dL (12.0-16.0); Mean Corp Hgb Conc. 33.7 g/dL (33.0-37.0); Mean Corpuscular Hgb 31.3 pg (27.0-31.0); Mean Corpuscular Volume 92.8 fL (81.0-99.0); Mean Platelet Volume 10.2 fL (7.4-10.4); Platelet Count 233 10^3/uL (130-400); Red Cell Dist. Width 13.5 % (11.5-14.5); White Blood Cell Count 3.9 10^3/uL (4.8-10.8)
== END ==
LOC: OIDL 15:47
PROVIDERS: ATTENDING PHYSICIAN Nurse Practitioner Primary Care
DX: E83.19 Other disorders of iron metabolism (principal); D50.9 Iron deficiency anemia, unspecified; K50.918 Crohn's disease, unspecified, with other complication; D51.3 Other dietary vitamin B12 deficiency anemia
CPT/HCPCS: 85025

== ENCOUNTER → 2024-11-11 16:31 | Outpatient (REF) | payer MEDICARE, SELFPAY ==
[2024-11-11 14:29] LABS: % Basophils 0.7 % (0-2); % Eosinophils 2.2 % (0-6); % Immature Granulocytes 0.2 % (0-0.5); % Lymphocytes 33.2 % (20.5-51.1); % Monocytes 7.3 % (1.7-9.3); % Neutrophils 56.4 % (42.2-75.2); Absolute Eosinophils 0.1 10^3/uL (0-0.7); Absolute Lymphocytes 1.8 10^3/uL (1.2-3.4); Absolute Monocytes 0.4 10^3/uL (0.1-0.6); Absolute Neutrophils 3.1 10^3/uL (1.4-6.5); Hematocrit 37.6 % (37.0-47.0); Hemoglobin 12.6 g/dL (12.0-16.0); Mean Corp Hgb Conc. 33.5 g/dL (33.0-37.0); Mean Corpuscular Hgb 30.6 pg (27.0-31.0); Mean Corpuscular Volume 91.3 fL (81.0-99.0); Mean Platelet Volume 9.7 fL (7.4-10.4); Platelet Count 255 10^3/uL (130-400); Red Blood Cell Count 4.12 10^6/uL (4.20-5.40); Red Cell Dist. Width 13.2 % (11.5-14.5); White Blood Cell Count 5.5 10^3/uL (4.8-10.8)
== END ==
LOC: OIDL 16:31
PROVIDERS: ATTENDING PHYSICIAN Nurse Practitioner Primary Care
DX: E83.19 Other disorders of iron metabolism (principal); D50.9 Iron deficiency anemia, unspecified; K50.918 Crohn's disease, unspecified, with other complication; D51.3 Other dietary vitamin B12 deficiency anemia
CPT/HCPCS: 85025

== ENCOUNTER → 2024-11-22 13:12 | Outpatient (REF) | payer MEDICARE, SELFPAY | LOC: HWRAD 13:12 | PROVIDERS: ATTENDING PHYSICIAN Internal Medicine Endocrinology, Diabetes & Metabolism; FAMILY PHYSICIAN Family Medicine | DX: E89.0 Postprocedural hypothyroidism (principal); E04.1 Nontoxic single thyroid nodule | CPT/HCPCS: 76536 ==

== ENCOUNTER 2025-05-11 06:41 | Day surgery (SDC) | payer MEDICARE, SELFPAY | END 2025-05-11 14:04 | disposition home or self-care (01) | LOC: GI 06:41 | PROVIDERS: ATTENDING PHYSICIAN Internal Medicine | DX: Z12.11 Encounter for screening for malignant neoplasm of colon (principal); K64.9 Unspecified hemorrhoids; K57.30 Diverticulosis of large intestine without perforation or abscess without bleeding; D12.0 Benign neoplasm of cecum; K29.50 Unspecified chronic gastritis without bleeding; Z86.0101 Personal history of adenomatous and serrated colon polyps | CPT/HCPCS: 45380; 88305 ==

== ENCOUNTER → 2025-05-23 16:20 | Outpatient (REF) | payer MEDICARE, SELFPAY ==
[2025-05-23 13:59] LABS: Hematocrit 37.3 % (37.0-47.0); Hemoglobin 12.9 g/dL (12.0-16.0); Mean Corp Hgb Conc. 34.6 g/dL (33.0-37.0); Mean Corpuscular Volume 92.6 fL (81.0-99.0); Platelet Count 252 10^3/uL (130-400); Red Cell Dist. Width 11.9 % (11.5-14.5)
== END ==
LOC: OIDL 16:20
PROVIDERS: ATTENDING PHYSICIAN Internal Medicine Hematology & Oncology
DX: E83.19 Other disorders of iron metabolism (principal); D50.9 Iron deficiency anemia, unspecified; K50.918 Crohn's disease, unspecified, with other complication; D51.3 Other dietary vitamin B12 deficiency anemia
CPT/HCPCS: 85025

== ENCOUNTER → 2025-07-26 14:33 | Outpatient (REF) | payer MEDICARE, SELFPAY | LOC: DHSLP 14:33 | PROVIDERS: ATTENDING PHYSICIAN Internal Medicine Critical Care Medicine; FAMILY PHYSICIAN Family Medicine | DX: G47.11 Idiopathic hypersomnia with long sleep time (principal); R06.83 Snoring | CPT/HCPCS: 95800 ==